=== PATIENT | female | born 2000 | race Caucasian/White ===

== ENCOUNTER 2022-02-05 10:44 | Inpatient (IN) ==
[2022-02-05 10:17] LABS: Basophils # 0.1 K/mcL (0.0-0.2); Basophils % 0.3 %; Eosinophils # 0.1 K/mcL (0.0-0.6); Eosinophils % 0.5 %; Hematocrit 40.2 % (35.3-44.9); Hemoglobin 13.3 g/dL (11.5-15.4); Immature Granulocytes % 0.6 % (0-4); Lymphocytes # 2.3 K/mcL (0.6-4.6); Lymphocytes % 15.6 %; Mean Corpuscular HGB Conc 33.1 g/dL (31.6-35.5); Mean Corpuscular Hemoglobin 27.1 pg (28.0-33.3); Mean Corpuscular Volume 81.9 fL (83.0-100.0); Mean Platelet Volume 9.8 fL (9.4-12.4); Monocytes # 0.8 K/mcL (0.0-1.3); Monocytes % 5.7 %; Neutrophils # 11.3 K/mcL (1.6-8.9); Platelet Count 306 K/mcL (140-400); Red Blood Count 4.91 M/mcL (3.82-4.97); Red Cell Distribution Width 15.2 % (11.5-14.5); Segmented Neutrophils % 77.3 %; White Blood Count 14.7 K/mcL (4.3-11.1)
[2022-02-05 10:27] LABS: Protein/Creatinine Ratio,Urine 0.26 mg/mg (0.00-0.20)
[2022-02-05 10:38] LABS: Alanine Aminotransferase 13 Units/L (7-52); Aspartate Amino Transferase 15 Units/L (13-39); BUN/Creatinine Ratio 10 (6-26); Blood Urea Nitrogen 6 mg/dL (6-20); Lactate Dehydrogenase 146 Units/L (140-271); Uric Acid 5.1 mg/dL (2.3-7.6); eGFR For African Americans > 60 (> 60); eGFR For Non-African Americans > 60 (> 60)
[~2022-02-05 10:44] MED LIST: *HR* Nalbuphine 10 MG/ML AMPUL IV PRN; Azithromycin 500 MG in 0.9 % Sodium Chloride 250 ML IVPB PRN; EPHEDrine 50 MG/ML VIAL IVP PRN; Famotidine 20 MG/2 ML VIAL IVP PRN; Metoclopramide 10 MG/2 ML VIAL IVP PRN; Naloxone 0.4 MG/ML INJ IVP PRN; Ondansetron 4 MG/2 ML VIAL IVP PRN
[2022-02-05 11:12] LABS: Amphetamine Screen,Urine Negative ng/mL (Cutoff=1000); Barbiturate Screen,Urine Negative ng/mL (Cutoff=200); Benzodiazepines Screen,Urine Negative ng/mL (Cutoff=200); Cannabinoid Screen,Urine Negative ng/mL (Cutoff = 50); Cocaine Screen,Urine Negative ng/mL (Cutoff= 300); Opiate Screen,Urine Negative ng/mL (Cutoff=300); Phencyclidine Screen,Urine Negative ng/mL (Cutoff=25)
[2022-02-05] MEDS: Ringers Solution, Lactated 1,000 ML IVC SCH (11:12)
[2022-02-05] MEDS ORDERED: *HR* Labetalol 20 MG/4 ML SYRINGE IVP ONE ×4 (11:15→11:46)
[2022-02-05 11:53] LABS: Influenza A PCR Negative (Negative); Influenza B PCR Negative (Negative); Resp. Syncytial Virus PCR Negative (Negative)
[2022-02-05 11:55] LABS: SARS-CoV-2 by PCR (In House) Negative (Negative)
[2022-02-05] MEDS ORDERED: Oxytocin 30 UNIT/503 ML BAG IVC SCH (17:15)
[2022-02-05] MEDS: Epidural Premix (fent/bupiv) 110 ML EP SCH (20:38)
[2022-02-06] MEDS: Epidural Premix (fent/bupiv) 110 ML EP SCH ×2 (04:17→15:24)
[2022-02-06 07:07] LABS: Basophils % 0.2 %; Hematocrit 34.4 % (35.3-44.9); Immature Granulocytes % 0.9 % (0-4); Lymphocytes % 3.9 %; Mean Corpuscular HGB Conc 32.3 g/dL (31.6-35.5); Mean Corpuscular Hemoglobin 27.1 pg (28.0-33.3); Mean Corpuscular Volume 84.1 fL (83.0-100.0); Mean Platelet Volume 9.5 fL (9.4-12.4); Monocytes # 1.5 K/mcL (0.0-1.3); Monocytes % 6.3 %; Neutrophils # 21.6 K/mcL (1.6-8.9); Platelet Count 279 K/mcL (140-400); Red Blood Count 4.09 M/mcL (3.82-4.97); Red Cell Distribution Width 15.4 % (11.5-14.5); Segmented Neutrophils % 88.7 %
[2022-02-06 07:08] LABS: Basophils # 0.1 K/mcL (0.0-0.2); Hemoglobin 11.1 g/dL (11.5-15.4); White Blood Count 24.3 K/mcL (4.3-11.1)
[2022-02-06] MEDS ORDERED: OXYTOCIN/RINGERS LACTATE 10 UNIT/166.6 ML BAG IVC ONE (13:28)
[2022-02-06] MEDS ORDERED: Benzocaine/Menthol 56 GM AEROSOL SPRAY TP PRN (13:28)
[2022-02-06] MEDS ORDERED: Lanolin 7 G OINT...G. TP PRN (13:28)
[2022-02-06] MEDS ORDERED: Rho Immune Globulin 1,500 UNIT SYRINGE IM PRN (13:28)
[2022-02-06] MEDS ORDERED: Measles/Mumps/Rubella Vacc 0.5 ML VIAL SQ PRN (13:28)
[2022-02-06] MEDS ORDERED: Ondansetron ODT 4 MG TAB.RAPDIS SL PRN (13:28)
[2022-02-06] MEDS: Ibuprofen 600 MG TABLET PO SCH (15:21)
[2022-02-06] MEDS: Acetaminophen 325 MG TABLET PO SCH ×2 (15:23→15:32)
[2022-02-06] MEDS: Ringers Solution, Lactated 1,000 ML IVC SCH (15:24)
[2022-02-06] MEDS: Oxytocin 30 UNIT/503 ML BAG IVC SCH ×2 (15:25→15:26)
[2022-02-07 06:50] VITALS: BP 123/90; PULSE 99; TEMP 98.2; O2SAT 97
[2022-02-07] MEDS: Acetaminophen 325 MG TABLET PO SCH (07:53)
[2022-02-07] MEDS: Ibuprofen 600 MG TABLET PO SCH (07:53)
[2022-02-07] MEDS ORDERED: Prenatal Vit/FA 1 EACH TABLET PO SCH (09:00)
== END 2022-02-07 14:14 | disposition home or self-care (01) | DRG 807 ==
LOC: 1NENULAB → 1NENUOBS 02-06 15:08
PROVIDERS: ADMIT Obstetrics & Gynecology; ATTEND Obstetrics & Gynecology